=== PATIENT | male | born 1990 | race Two or more races ===

== ENCOUNTER 2024-10-04 18:44 | Emergency (ER) | payer OTHER ==
[~2024-10-04] VITALS: Ht 167.6 cm; Wt 66.0 kg
[2024-10-04 18:47] VITALS: TEMP 36.8; O2SAT 100
[2024-10-04 22:09] VITALS: TEMP 98.2
[2024-10-04] MEDS: ACETAMINOPHEN 325MG TABLET PO ONE (22:09)
[2024-10-04 22:10] VITALS: BP 118/88; PULSE 69; RESP 16
[2024-10-04] MEDS: KETOROLAC 15MG/ML VIAL IM ONE (22:10)
[2024-10-04] MEDS ORDERED: CYCL10TA21 MT (22:53)
== END 2024-10-04 23:55 | disposition home or self-care (01) ==
LOC: ER 18:44
DX: M62.838 Other muscle spasm (principal); V49.40XA Driver injured in collision with unspecified motor vehicles in traffic accident, initial encounter; Y93.89 Activity, other specified; Y92.89 Other specified places as the place of occurrence of the external cause; Y99.8 Other external cause status
CPT/HCPCS: 99283; 96372; J1885